=== PATIENT | male | born 1985 | race Caucasian/White ===

== ENCOUNTER 2016-12-16 10:12 | Emergency (ER) | payer SELFPAY ==
--- NOTE | 2016-12-16 11:07 | EDM.PDOC ---
ED HPI GENERAL MEDICAL PROBLEM - General Chief Complaint: General Stated Complaint: MALARIA CHECK Time Seen by Provider: 12/16/16 10:20 Source of Information: Reports: Patient History Limitations: Reports: No limitations - History of Present Illness INITIAL COMMENTS - FREE TEXT/NARRATIVE: HISTORY AND PHYSICAL: History of present illness: [Patient comes to the emergency room requesting evaluation for malaria. He states that he's had several years of not feeling right. He complains of increased fatigue, decreased energy, and the sensation that "someone peed on my brain". Has a history of right pneumothorax in 2009. He cannot remember any precipitating events that led to the development of a pneumothorax. Since then, he feels as though his right lung doesn't get enough oxygen and doesn't work correctly. He admits to having "delusions of grandeur", states that he feels self-important and that he is a "VIP". He reports a history of bipolar disorder for which he is on disability in the [facility]. He has not been treated with medications for several years as he does not believe that his current symptoms are a mental illness. Patient states that he is sure he has a disease that is causing his current symptoms. He has been worked up and tested negative for HIV, AIDS, syphilis, Lyme disease, pneumothorax, tape worm, mono. He states that he has reported his symptoms to [facility] [employer] and that no cause of his symptomatology was found. His only travel out of the [facility] was to [place] from 2002 -2006. Denies travel to [place], [place], [place], [place] and [place]. He does not have a local doctor but has been to the emergency room several times and has also been evaluated at [facility]. He currently denies chest pain shortness of breath and difficulty breathing. He has not had any fever or chills. His appetite has been good. He denies muscle aches or pains. He denies confusion. Denies hearing voices. Admits to seeing things in his periphery that others cannot see. He claims that quite often he can see people in his periphery. Denies recent or current suicidal ideation. Denies homicidal thoughts or actions. He admits to a long history of drug use, using every substance available. Admits to a history of opiate addiction. He's never been to drug or alcohol treatment. He quit smoking several years ago. Review of systems: As per history of present illness and below otherwise all systems reviewed and negative. Past medical history: As per history of present illness and as reviewed below otherwise noncontributory. Surgical history: As per history of present illness and as reviewed below otherwise noncontributory. Social history: No reported history of drug or alcohol abuse. Family history: As per history of present illness and as reviewed below otherwise noncontributory. Physical exam: HEENT: Atraumatic, normocephalic. PERRLA. EOMI. mucous membranes moist, throat clear. No lymphadenopathy , neck supple, nontender, trachea midline. Lungs: Clear to auscultation, breath sounds equal bilaterally, chest nontender. Annular scar over right chest wall just lateral to the sternum. Heart: S1S2, regular in rhythm. Abdomen: Normoactive bowel sounds, abdomen Soft, nondistended, nontender. Negative for masses or hepatosplenomegaly. Negative for costovertebral tenderness. Pelvis: Stable nontender. Genitourinary: Deferred. Rectal: Deferred. Extremities: Atraumatic, negative for cords or calf pain. Neurovascular unremarkable. Neuro: Awake, alert, oriented. Exam nonfocal Psych: Makes good eye contact, interacts appropriately with examiner. Appears distracted by noises heard in the hallway. Diagnostics: [CBC, CMP, UA, UDS] Impression: [fatigue bipolar disorder] Plan: [Discussed with patient that his labs are unremarkable today. Recommend that he followup at [facility] to discuss his symptoms. He is in agreement with today's plan. He verbalizes understanding.] Definitive disposition and diagnosis as appropriate pending reevaluation and review of above. - Related Data Allergies Allergy/AdvReac Type Severity Reaction Status Date / Time No Known Allergies Allergy Verified 12/16/16 10:21 Home Meds: Home Meds . [No Known Home Meds] 04/07/16 [History] Past Medical History HEENT History: Reports: None Cardiovascular History: Reports: None Respiratory History: Reports: Pneumothorax Other Respiratory History: chest tube 4 or 5 years ago Gastrointestinal History: Reports: None Genitourinary History: Reports: None Musculoskeletal History: Reports: None Neurological History: Reports: None Psychiatric History: Reports: Anxiety, Psych Hospitalization(s), Other (see below) Other Psychiatric History: delusions, paranoia Endocrine/Metabolic History: Reports: None Hematologic History: Reports: None Immunologic History: Reports: None Oncologic (Cancer) History: Reports: None Dermatologic History: Reports: None - Infectious Disease History Infectious Disease History: Reports: None - Past Surgical History Head Surgeries/Procedures: Reports: None GI Surgical History: Reports: None Male Surgical History: Reports: None Endocrine Surgical History: Reports: None Neurological Surgical History: Reports: None Musculoskeletal Surgical History: Reports: None Oncologic Surgical History: Reports: None Dermatological Surgical History: Reports: None Social & Family History - Family History Family Medical History: Noncontributory Psychiatric: Reports: Anxiety, Bipolar, Depression, Hallucinations, Psych hospitalization(s) - Tobacco Use Smoking Status *Q: Former Smoker Years of Tobacco use: 17 Packs/Tins Daily: 1 Used Tobacco, but Quit: No Second Hand Smoke Exposure: No - Caffeine Use Caffeine Use: Reports: None Caffeine Use Comment: 7-8 daily - Recreational Drug Use Recreational Drug Use: No Drug Use in Last 12 Months: No Recreational Drug Type: Reports: Methamphetamine, Other (see below) Other Recreational Drug Type: opiates and speed Recreational Drug Use Frequency: Not Used In Over 1 Year ED ROS GENERAL - Review of Systems Review Of Systems: ROS reveals no pertinent complaints other than HPI. ED EXAM, GENERAL - Physical Exam Exam: See Below Course - Vital Signs Last Recorded V/S: Last Vital Signs Temp 97.6 F 12/16/16 10:21 Pulse 73 12/16/16 10:21 Resp 16 12/16/16 10:21 BP 134/75 12/16/16 10:21 Pulse Ox 95 12/16/16 10:21 - Orders/Labs/Meds Labs: Laboratory Tests 12/16/16 12/16/16 12/16/16 Range/Units 10:45 10:45 10:50 WBC 9.18 (4.0-11.0) K/uL RBC 5.25 (4.50-5.90) M/uL Hgb 16.9 (13.0-17.0) g/dL Hct 48.6 (38.0-50.0) % MCV 92.6 (80.0-98.0) fL MCH 32.2 H (27.0-32.0) pg MCHC 34.8 (31.0-37.0) g/dL RDW Std Deviation 41.9 (28.0-62.0) fl RDW Coeff of Isela 13 (11.0-15.0) % Plt Count 200 (150-400) K/uL MPV 11.20 (7.40-12.00) fL Neut % (Auto) 60.9 (48.0-80.0) % Lymph % (Auto) 27.9 (16.0-40.0) % [place] % (Auto) 8.0 (0.0-15.0) % Eos % (Auto) 2.8 (0.0-7.0) % Baso % (Auto) 0.4 (0.0-1.5) % Neut # 5.6 (1.4-5.7) K/uL Lymph # 2.6 H (0.6-2.4) K/uL [place] # 0.7 (0.0-0.8) K/uL Eos # 0.3 (0.0-0.7) K/uL Baso # 0.0 (0.0-0.1) K/uL Nucleated RBC % 0.0 /100WBC Nucleated RBCs # 0 K/uL Sodium (136-146) mmol/L Potassium (3.5-5.1) mmol/L Chloride (98-110) mmol/L Carbon Dioxide (21-31) mmol/L BUN (6.0-23.0) mg/dL Creatinine (0.6-1.5) mg/dL Est Cr Clr Drug Dosing Estimated GFR (MDRD) ml/min Glucose (60-110) mg/dL Calcium (8.8-10.8) mg/dL Total Bilirubin (0.1-1.5) mg/dL AST (5-40) IU/L ALT (8-54) IU/L Alkaline Phosphatase (40-150) Total Protein (6.0-8.0) g/dL Albumin (3.5-5.0) g/dL Globulin (2.0-3.5) g/dL Albumin/Globulin Ratio (1.3-2.8) Urine Color YELLOW Urine Appearance CLEAR Urine pH 5.5 (5.0-8.0) Ur Specific [place] >= 1.030 (1.001-1.035) Urine Protein NEGATIVE (NEGATIVE) mg/dL Urine Glucose (UA) NEGATIVE (NEGATIVE) mg/dL Urine Ketones NEGATIVE (NEGATIVE) mg/dL Urine Occult Blood NEGATIVE (NEGATIVE) Urine Nitrite NEGATIVE (NEGATIVE) Urine Bilirubin NEGATIVE (NEGATIVE) Urine Urobilinogen 0.2 (<2.0) EU/dL Ur Leukocyte Esterase NEGATIVE (NEGATIVE) Urine RBC NONE SEEN (0-2/HPF) Urine WBC RARE (0-5/HPF) Ur Epithelial Cells FEW (NONE-FEW) Urine Bacteria NOT SEEN (NEGATIVE) Urine Opiates Screen NEGATIVE (NEGATIVE) Ur Oxycodone Screen NEGATIVE (NEGATIVE) Urine Methadone Screen NEGATIVE (NEGATIVE) Ur Barbiturates Screen NEGATIVE (NEGATIVE) Ur Phencyclidine Scrn NEGATIVE (NEGATIVE) Ur Amphetamine Screen NEGATIVE (NEGATIVE) U Methamphetamines Scrn NEGATIVE (NEGATIVE) U Benzodiazepines Scrn NEGATIVE (NEGATIVE) U Cocaine Metab Screen NEGATIVE (NEGATIVE) U Marijuana (THC) Screen NEGATIVE (NEGATIVE) 12/16/16 Range/Units 10:50 WBC (4.0-11.0) K/uL RBC (4.50-5.90) M/uL Hgb (13.0-17.0) g/dL Hct (38.0-50.0) % MCV (80.0-98.0) fL MCH (27.0-32.0) pg MCHC (31.0-37.0) g/dL RDW Std Deviation (28.0-62.0) fl RDW Coeff of Isela (11.0-15.0) % Plt Count (150-400) K/uL MPV (7.40-12.00) fL Neut % (Auto) (48.0-80.0) % Lymph % (Auto) (16.0-40.0) % [place] % (Auto) (0.0-15.0) % Eos % (Auto) (0.0-7.0) % Baso % (Auto) (0.0-1.5) % Neut # (1.4-5.7) K/uL Lymph # (0.6-2.4) K/uL [place] # (0.0-0.8) K/uL Eos # (0.0-0.7) K/uL Baso # (0.0-0.1) K/uL Nucleated RBC % /100WBC Nucleated RBCs # K/uL Sodium 141 (136-146) mmol/L Potassium 4.2 (3.5-5.1) mmol/L Chloride 108 (98-110) mmol/L Carbon Dioxide 22 (21-31) mmol/L BUN 12 (6.0-23.0) mg/dL Creatinine 0.9 (0.6-1.5) mg/dL Est Cr Clr Drug Dosing TNP Estimated GFR (MDRD) > 60.0 ml/min Glucose 93 (60-110) mg/dL Calcium 9.4 (8.8-10.8) mg/dL Total Bilirubin 0.6 (0.1-1.5) mg/dL AST 21 (5-40) IU/L ALT 25 (8-54) IU/L Alkaline Phosphatase 95 (40-150) Total Protein 7.2 (6.0-8.0) g/dL Albumin 4.4 (3.5-5.0) g/dL Globulin 2.8 (2.0-3.5) g/dL Albumin/Globulin Ratio 1.6 (1.3-2.8) Urine Color Urine Appearance Urine pH (5.0-8.0) Ur Specific [place] (1.001-1.035) Urine Protein (NEGATIVE) mg/dL Urine Glucose (UA) (NEGATIVE) mg/dL Urine Ketones (NEGATIVE) mg/dL Urine Occult Blood (NEGATIVE) Urine Nitrite (NEGATIVE) Urine Bilirubin (NEGATIVE) Urine Urobilinogen (<2.0) EU/dL Ur Leukocyte Esterase (NEGATIVE) Urine RBC (0-2/HPF) Urine WBC (0-5/HPF) Ur Epithelial Cells (NONE-FEW) Urine Bacteria (NEGATIVE) Urine Opiates Screen (NEGATIVE) Ur Oxycodone Screen (NEGATIVE) Urine Methadone Screen (NEGATIVE) Ur Barbiturates Screen (NEGATIVE) Ur Phencyclidine Scrn (NEGATIVE) Ur Amphetamine Screen (NEGATIVE) U Methamphetamines Scrn (NEGATIVE) U Benzodiazepines Scrn (NEGATIVE) U Cocaine Metab Screen (NEGATIVE) U Marijuana (THC) Screen (NEGATIVE) Departure - Departure Time of Disposition: 11:30 Disposition: Home, Self-Care 01 Condition: good Clinical Impression: Fatigue Qualifiers: Fatigue type: other Qualified Code(s): R53.83 - Other fatigue Forms: ED Department Discharge Additional Instructions: The following information is given to patients seen in the emergency department who are being discharged to home. This information is to outline your options for follow-up care. We provide all patients seen in our emergency department with a follow-up referral. The need for follow-up, as well as the timing and circumstances, are variable depending upon the specifics of your emergency department visit. If you don't have a primary care physician on staff, we will provide you with a referral. We always advise you to contact your personal physician following an emergency department visit to inform them of the circumstance of the visit and for follow-up with them and/or the need for any referrals to a consulting specialist. The emergency department will also refer you to a specialist when appropriate. This referral assures that you have the opportunity for follow-up care with a specialist. All of these measure are taken in an effort to provide you with optimal care, which includes your follow-up. Under all circumstances we always encourage you to contact your private physician who remains a resource for coordinating your care. When calling for follow-up care, please make the office aware that this follow-up is from your recent emergency room visit. If for any reason you are refused follow-up, please contact the [facility] emergency department at and asked to speak to the emergency department charge nurse. [facility] [address] [place] [address]. [place] [address] Please followup with the clinic listed above next week to discuss your symptoms. Your lab results have come back completely normal today. There is no evidence that you have malaria. Return to ER as needed and as discussed.
[2016-12-16 11:17] LABS: CHLORIDE,CL 108 mmol/L (98-110); SODIUM,NA 141 mmol/L (136-146)
[2016-12-16 11:40] VITALS: BP 134/70
== END 2016-12-16 11:39 | disposition home or self-care (01) ==
LOC: MW.ED 10:12
DX: F31.9 Bipolar disorder, unspecified (principal); R53.83 Other fatigue; Z87.891 Personal history of nicotine dependence
CPT/HCPCS: 36415; 80053; 81001; 85025; 99283; G0478; 80305; 99284